=== PATIENT | female | born 1995 | race African-American/Black ===

== ENCOUNTER 2019-05-04 08:33 | Emergency (ER) | payer OTHER ==
[~2019-05-04] VITALS: Ht 172.7 cm; Wt 104.3 kg
[2019-05-04 08:37] VITALS: BP 136/78
--- NOTE | 2019-05-04 08:39 | NUR ---
Patient ambulated to bed 11 with crutches. RN evaluating patient at bedside.
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
--- NOTE | 2019-05-04 08:39 | NUR ---
NO DEFORMITY, NO SWELLING NOTED TO L FOOT
--- NOTE | 2019-05-04 08:43 | NUR ---
PT UNABLE TO GIVE URINE SPECIMEN AT THIS TIME. OFFERED FLUIDS, PT TOLERATED WELL.
--- NOTE | 2019-05-04 09:01 | NUR ---
RADIOLOGY AT BEDSIDE
--- NOTE | 2019-05-04 09:14 | NUR ---
DR SPAULDING AT BEDSIDE FOR PT EVALUATION
--- NOTE | 2019-05-04 09:30 | NUR ---
PT AMBULATED USING CRUTCHES TO THE BATHROOM WITH STEADY GAIT.
--- NOTE | 2019-05-04 09:35 | NUR ---
URINE SAMPLE OBTAINED.
[2019-05-04 09:59] VITALS: BP 132/76
--- NOTE | 2019-05-04 09:59 | NUR ---
Patient discharged with v/s stable. Written and verbal after care instructions given and explained. Patient alert, oriented and verbalized understanding of instructions. Ambulatory with crutches with steady gait. All questions addressed prior to discharge. ID band removed. Patient advised to follow up with PMD. Rx of Ibuprofen 600 mg, [place] 5mg-325 mg given. Patient educated on indication of medication including possible reaction and side effects. Opportunity to ask questions provided and answered.
== END 2019-05-04 09:59 | disposition home or self-care (01) ==
LOC: MED 08:33
DX: S93.602A Unspecified sprain of left foot, initial encounter (principal); D64.9 Anemia, unspecified; X58.XXXA Exposure to other specified factors, initial encounter; Y93.39 Activity, other involving climbing, rappelling and jumping off; Y92.34 Swimming pool (public) as the place of occurrence of the external cause; Y99.8 Other external cause status
CPT/HCPCS: 73630; 81025; 99283; Q0092